=== PATIENT | female | born 1945 | race African-American/Black ===

== ENCOUNTER → 2018-10-29 | Outpatient (CLI) | payer MEDICARE, BC ==
[~2018-10-29] MED LIST: BARIUM SULFATE 450ML ORAL SUSP ONE; DIATR MEGLU/DIATRIZOATE SOLN 120ML ONE; IOHEXOL-300 100 ML BOTTLE ONE
== END | disposition home or self-care (01) ==
LOC: CT 08:09
PROVIDERS: ATTEND Surgery
DX: K57.30 Diverticulosis of large intestine without perforation or abscess without bleeding (principal); K42.9 Umbilical hernia without obstruction or gangrene; D71 Functional disorders of polymorphonuclear neutrophils; K76.89 Other specified diseases of liver; Z90.710 Acquired absence of both cervix and uterus
CPT/HCPCS: 74177; Q9967; Q9963

== ENCOUNTER 2019-02-25 13:04 | Emergency (ER) | payer MEDICARE, BC ==
[~2019-02-25] VITALS: Ht 165.1 cm; Wt 64.0 kg
[2019-02-25] MEDS ORDERED: FURO40TA5 PO (13:30)
[2019-02-25] MEDS ORDERED: FELO10TA PO (13:30)
[2019-02-25] MEDS ORDERED: ALBUL GT (13:30)
[2019-02-25] MEDS ORDERED: ASPI-1159 PO (13:30)
[2019-02-25] MEDS ORDERED: KLOR CON (13:30)
[2019-02-25] MEDS ORDERED: P50 PO (13:30)
[2019-02-25] MEDS ORDERED: FLOV44 INH (13:30)
[2019-02-25] MEDS ORDERED: B50 GT (13:30)
[2019-02-25] MEDS ORDERED: AZIT500T3 PO (13:30)
[2019-02-25] MEDS ORDERED: IPRATROPIUM BROMIDE (0.02%) 0.5MG/2.5ML NEB HHN STA (13:53)
[2019-02-25] MEDS ORDERED: ALBUTEROL (0.083%) 2.5MG/3ML NEB HHN STA (13:53)
[2019-02-25] MEDS ORDERED: PREDNISONE 20MG TABLET PO STA (13:53)
[2019-02-25] MEDS ORDERED: METHYLPREDNISOLONE SOD SUCC 40 MG/ML VIAL IM ONE (16:15)
[2019-02-25 16:23] VITALS: BP 148/75
[2019-02-25] MEDS ORDERED: METHYLPREDNISOLONE SOD SUCC 125 MG/2 ML VIAL ONE (16:25)
== END 2019-02-25 16:39 | disposition left against medical advice (07) ==
LOC: ER 13:04
DX: J45.901 Unspecified asthma with (acute) exacerbation (principal); R09.02 Hypoxemia; I10 Essential (primary) hypertension; Z90.49 Acquired absence of other specified parts of digestive tract; Z90.710 Acquired absence of both cervix and uterus; Z98.890 Other specified postprocedural states; Z88.5 Allergy status to narcotic agent
CPT/HCPCS: 94640; 96372; 99283; J2930; J7512; J7611

== ENCOUNTER 2019-03-09 16:33 | Inpatient (IN) | payer MEDICARE, BC ==
[~2019-03-09] VITALS: Ht 165.1 cm; Wt 111.6 kg
[~2019-03-09 16:33] MED LIST changes: +ALBUL GT; +ASPI-1159 PO; +AZIT500T3 PO; +B50 GT; -BARIUM SULFATE 450ML ORAL SUSP ONE; -DIATR MEGLU/DIATRIZOATE SOLN 120ML ONE; +FELO10TA PO; +FLOV44 INH; +FURO40TA5 PO; -IOHEXOL-300 100 ML BOTTLE ONE; +KLOR CON; +P50 PO
[2019-03-09] MEDS ORDERED: IPRATROPIUM BROMIDE (0.02%) 0.5MG/2.5ML NEB HHN STA (17:26)
[2019-03-09] MEDS ORDERED: ALBUTEROL (0.083%) 2.5MG/3ML NEB HHN STA (17:26)
[2019-03-09] MEDS ORDERED: METHYLPREDNISOLONE SOD SUCC 125 MG/2 ML VIAL IV STA (17:26)
[2019-03-09] MEDS ORDERED: MAGNESIUM 2 G PREMIX 50 ML IV ONE (17:30)
[2019-03-09 18:01] LABS: CHLORIDE 95 mEq/L (98-107)
[2019-03-09] MEDS ORDERED: FUROSEMIDE 40MG/4ML VIAL IVP ONE (18:30)
[2019-03-09] MEDS ORDERED: ASPIRIN 81MG TABLET PO ONE (18:30)
[2019-03-09 19:33] LABS: BASOPHILS % 1.1 % (0.0-2.0); EOSINOPHILS % 1.4 % (0.0-5.0); HEMATOCRIT. 46.2 % (36.0-48.0); HEMOGLOBIN. 14.7 g/dL (12.0-16.0); LYMPHOCYTES % 23.9 % (20.0-50.0); MEAN CORPUSCULAR HEMOGLOBIN 25.8 pg (28.0-32.0); MEAN CORPUSCULAR VOLUME 80.8 fL (81.0-99.0); MEAN PLATELET VOLUME 8.3 fl (7.4-10.4); MONOCYTES % 8.2 % (2.0-8.0); NEUTROPHILS % 65.4 % (40.0-76.0); PLATELET 179 x1000/uL (130-400); RED BLOOD CELL COUNT 5.71 mill/uL (4.2-5.4); RED CELL DISTRIBUTION WIDTH 18.6 % (11.6-14.6)
[2019-03-09] MEDS ORDERED: ACETAMINOPHEN 650MG/20.3ML UDC GT PRN (20:00)
[2019-03-09] MEDS ORDERED: ONDANSETRON HCL 4MG/2ML INJ IV PRN (20:00)
[2019-03-09] MEDS ORDERED: GUAIFENESIN 200MG/10ML SUGAR FREE UDC PO PRN (20:00)
[2019-03-09] MEDS ORDERED: DOCUSATE SODIUM 100MG CAPSULE PO PRN (20:00)
[2019-03-09] MEDS ORDERED: MAGNESIUM/ALUMINUM HYDROXIDE/SIMETHICONE 30ML UDC PO PRN (20:00)
[2019-03-09] MEDS ORDERED: NA PHOS,M-B/NA PHOS,DI-BA ENEMA 118ML PR PRN (20:00)
[2019-03-09] MEDS ORDERED: DIPHENHYDRAMINE 50MG/ML VIAL IV PRN (20:00)
[2019-03-09] MEDS ORDERED: CLONIDINE 0.1MG TABLET PO PRN (20:00)
[2019-03-09] MEDS ORDERED: ACETAMINOPHEN 650MG SUPP PR PRN (20:00)
[2019-03-09] MEDS: IPRATROPIUM/ALBUTEROL 0.5-3(2.5)MG/3ML NEB INH PRN (21:15)
[2019-03-09 21:23] LABS: BG BASE EXCESS 7.3 mmol/L (-2.0-2.0); BG CARBOXYHEMOGLOBIN 1.2 % (0.5-1.5); BG FRACTION INSPIRED OXYGEN 32; BG HCO3 ACT 34.8 mmol/L (22.0-26.0); BG METHEMOGLOBIN 0.4 % (0.0-1.5); BG OXYGEN SATURATION 87.8 % (92.0-98.5); BG OXYHEMOGLOBIN 86.4 % (94.0-97.0); BG PCO2 59.7 mmHg (35.0-45.0); BG PH 7.383 (7.350-7.450); BG PO2 57.3 mmHg (75.0-100.0); BG SAMPLE SITE RIGHT RADIAL; BG TOTAL HEMOGLOBIN 15.9 g/dL (12.0-18.0); BG VENT MODE NASAL CANNULA
[2019-03-09 22:20] VITALS: BP 127/72
[2019-03-09] MEDS: ENOXAPARIN 120MG/0.8ML SYR SUBCUT SCH (23:00)
[2019-03-09] MEDS ORDERED: FUROSEMIDE 40MG/4ML VIAL IVP SCH (23:00)
[2019-03-09 23:33] LABS: CREATINE KINASE MB FRACTION 2.9 ng/mL (0.5-3.6)
[2019-03-10] VITALS (7 sets, daily range): BP systolic 124–144; BP diastolic 64–86
[2019-03-10] MEDS: METHYLPREDNISOLONE SOD SUCC 40 MG/ML VIAL IV SCH ×4 (00:02→22:09)
[2019-03-10] MEDS: ENOXAPARIN 120MG/0.8ML SYR SUBCUT SCH ×3 (00:04→22:11)
[2019-03-10] MEDS: ALBUTEROL (0.083%) 2.5MG/3ML NEB HHN SCH ×4 (00:26→15:28)
[2019-03-10] MEDS ORDERED: MULT-1195 PO (01:17)
[2019-03-10 06:14] LABS: HEMATOCRIT. 48.6 % (36.0-48.0); HEMOGLOBIN. 15.6 g/dL (12.0-16.0); MEAN PLATELET VOLUME 8.5 fl (7.4-10.4); PLATELET 210 x1000/uL (130-400); RED BLOOD CELL COUNT 5.99 mill/uL (4.2-5.4); RED CELL DISTRIBUTION WIDTH 18.9 % (11.6-14.6)
[2019-03-10 06:33] LABS: CHLORIDE 94 mEq/L (98-107)
[2019-03-10 06:51] LABS: LDL CHOLESTEROL 110 mg/dL (5-100)
[2019-03-10 06:52] LABS: CREATINE KINASE 88 IU/L (26-192)
[2019-03-10 06:53] LABS: HDL CHOLESTEROL 68 mg/dL (40-59)
[2019-03-10] MEDS: PANTOPRAZOLE 40MG DR TABLET PO SCH (06:54)
[2019-03-10] MEDS: SODIUM CHLORIDE 0.9% INJ 3ML FLUSH IVF SCH ×3 (06:54→22:10)
[2019-03-10 06:56] LABS: CREATINE KINASE MB FRACTION 2.7 ng/mL (0.5-3.6)
[2019-03-10] MEDS: FUROSEMIDE 40MG TABLET PO SCH ×2 (09:00→22:10)
[2019-03-10] MEDS: ASPIRIN 81MG EC TABLET PO SCH ×2 (09:00→22:10)
[2019-03-10 16:02] LABS: CLARITY URINE CLEAR (CLEAR); COLOR URINE YELLOW (YELLOW); KETONES URINE NEGATIVE (NEGATIVE); LEUKOCYTE ESTERASE URINE NEGATIVE (NEGATIVE); NITRITE URINE NEGATIVE (NEGATIVE); OCCULT BLOOD URINE NEGATIVE (NEGATIVE); PH URINE 5.5 (4.5-8.0); PROTEIN URINE TRACE (NEGATIVE); SPECIFIC GRAVITY URINE 1.015 (1.005-1.030); UROBILINOGEN URINE 0.2 E.U./dL (0.2-1.0)
[2019-03-10] MEDS: AZITHROMYCIN 500 MG in DEXT 5% WATER 250 ML IV SCH (18:00)
[2019-03-10 20:26] LABS: PLATELET ESTIMATE NORMAL
[2019-03-10] MEDS: IPRATROPIUM/ALBUTEROL 0.5-3(2.5)MG/3ML NEB HHN SCH (20:46)
[2019-03-10] MEDS: HYDROCODONE/ACETAMINOPHEN 5/325MG TABLET PO PRN (22:18)
[2019-03-11] MEDS: IPRATROPIUM/ALBUTEROL 0.5-3(2.5)MG/3ML NEB HHN SCH ×5 (01:11→20:25)
[2019-03-11] MEDS: ACETYLCYSTEINE 200MG/ML 20% VIAL 4ML INH SCH ×2 (01:12→09:13)
[2019-03-11 03:55] VITALS: BP 147/90
[2019-03-11] MEDS: PANTOPRAZOLE 40MG DR TABLET PO SCH (06:09)
[2019-03-11] MEDS: SODIUM CHLORIDE 0.9% INJ 3ML FLUSH IVF SCH ×3 (06:10→22:38)
[2019-03-11] MEDS: METHYLPREDNISOLONE SOD SUCC 40 MG/ML VIAL IV SCH ×2 (06:30→15:01)
[2019-03-11 07:15] LABS: PROTHROMBIN TIME 10.7 sec (9.6-11.0)
[2019-03-11 08:06] VITALS: BP 127/78
[2019-03-11 08:26] LABS: HEMATOCRIT. 46.7 % (36.0-48.0); HEMOGLOBIN. 14.6 g/dL (12.0-16.0); MEAN CORPUSCULAR HEMOGLOBIN 25.5 pg (28.0-32.0); MEAN CORPUSCULAR VOLUME 81.7 fL (81.0-99.0); MEAN PLATELET VOLUME 9.1 fl (7.4-10.4); PLATELET 195 x1000/uL (130-400); RED BLOOD CELL COUNT 5.72 mill/uL (4.2-5.4); RED CELL DISTRIBUTION WIDTH 18.4 % (11.6-14.6)
[2019-03-11 08:34] LABS: CHLORIDE 99 mEq/L (98-107)
[2019-03-11] MEDS: ENOXAPARIN 120MG/0.8ML SYR SUBCUT SCH ×2 (11:00→21:20)
[2019-03-11] MEDS: IPRATROPIUM/ALBUTEROL 0.5-3(2.5)MG/3ML NEB INH PRN (11:52)
[2019-03-11 12:05] VITALS: BP 151/70
[2019-03-11 14:08] LABS: NUCLEATED RED BLOOD CELLS 1 /100 WBC
[2019-03-11 14:09] LABS: PLATELET ESTIMATE NORMAL
[2019-03-11 16:09] VITALS: BP 138/85
[2019-03-11] MEDS: ACETAMINOPHEN 325MG TABLET PO PRN (17:28)
[2019-03-11] MEDS: AZITHROMYCIN 500 MG in DEXT 5% WATER 250 ML IV SCH (18:00)
[2019-03-11 20:17] VITALS: BP 131/81
[2019-03-12] VITALS: BP 137/86
[2019-03-12] MEDS: IPRATROPIUM/ALBUTEROL 0.5-3(2.5)MG/3ML NEB HHN SCH ×6 (00:57→20:13)
[2019-03-12] MEDS: ACETYLCYSTEINE 100MG/ML 10% VIAL 4ML INH SCH ×4 (00:57→20:13)
[2019-03-12] MEDS: HYDROCODONE/ACETAMINOPHEN 5/325MG TABLET PO PRN (02:53)
[2019-03-12 04:00] VITALS: BP 156/82
[2019-03-12] MEDS: SODIUM CHLORIDE 0.9% INJ 3ML FLUSH IVF SCH ×3 (05:48→21:18)
[2019-03-12] MEDS: PANTOPRAZOLE 40MG DR TABLET PO SCH (05:52)
[2019-03-12] MEDS ORDERED: FUROSEMIDE 40MG TABLET PO SCH (07:15)
[2019-03-12] MEDS: METHYLPREDNISOLONE SOD SUCC 40 MG/ML VIAL IV SCH (08:36)
[2019-03-12] MEDS: ASPIRIN 81MG EC TABLET PO SCH (08:36)
[2019-03-12] MEDS: ACETAMINOPHEN 325MG TABLET PO PRN ×2 (10:27→21:18)
[2019-03-12] MEDS: ENOXAPARIN 120MG/0.8ML SYR SUBCUT SCH ×2 (11:00→21:19)
[2019-03-12 11:37] LABS: CHLORIDE 99 mEq/L (98-107)
[2019-03-12 11:43] LABS: HEMATOCRIT. 45.6 % (36.0-48.0); HEMOGLOBIN. 14.2 g/dL (12.0-16.0); MEAN CORPUSCULAR HEMOGLOBIN 25.5 pg (28.0-32.0); MEAN PLATELET VOLUME 8.9 fl (7.4-10.4); PLATELET 175 x1000/uL (130-400); RED BLOOD CELL COUNT 5.56 mill/uL (4.2-5.4); RED CELL DISTRIBUTION WIDTH 18.8 % (11.6-14.6)
[2019-03-12 11:52] VITALS: BP 135/83
[2019-03-12 12:32] LABS: NUCLEATED RED BLOOD CELLS 2 /100 WBC; PLATELET ESTIMATE NORMAL
[2019-03-12] MEDS ORDERED: FUROSEMIDE 40MG/4ML VIAL IVP SCH ×2 (14:30→17:15)
[2019-03-12 16:45] VITALS: BP 137/77
[2019-03-12] MEDS ORDERED: DOBUTAMINE 250MG PREMIX 250 ML IV NR (17:00)
[2019-03-12 20:00] VITALS: BP 131/79
[2019-03-12] MEDS: FAMOTIDINE 20MG TABLET PO SCH ×2 (21:00→21:18)
[2019-03-12 23:56] VITALS: BP 157/91
[2019-03-13] MEDS: IPRATROPIUM/ALBUTEROL 0.5-3(2.5)MG/3ML NEB HHN SCH ×3 (00:53→19:56)
[2019-03-13 04:00] VITALS: BP 148/91
[2019-03-13] MEDS: SODIUM CHLORIDE 0.9% INJ 3ML FLUSH IVF SCH ×3 (06:30→21:25)
[2019-03-13] MEDS ORDERED: ALBUMIN HUMAN 25GM/100ML (25%) IV NR (07:00)
[2019-03-13 07:11] LABS: CHLORIDE 100 mEq/L (98-107)
[2019-03-13 08:03] VITALS: BP 158/100
[2019-03-13] MEDS: FUROSEMIDE 40MG/4ML VIAL IVP SCH ×2 (08:07→17:44)
[2019-03-13] MEDS: METHYLPREDNISOLONE SOD SUCC 40 MG/ML VIAL IV SCH (08:07)
[2019-03-13] MEDS: FAMOTIDINE 20MG TABLET PO SCH ×2 (09:00→21:00)
[2019-03-13] MEDS: ACETAMINOPHEN 325MG TABLET PO PRN ×3 (09:24→21:25)
[2019-03-13] MEDS ORDERED: DOBUTAMINE 250MG PREMIX 250 ML IV ONE (09:40)
[2019-03-13] MEDS: ENOXAPARIN 120MG/0.8ML SYR SUBCUT SCH ×2 (11:00→22:23)
[2019-03-13 11:44] VITALS: BP 143/87
[2019-03-13] MEDS: ASPIRIN 81MG EC TABLET PO SCH (12:41)
[2019-03-13 16:30] VITALS: BP 138/92
[2019-03-13 20:00] VITALS: BP 142/85
[2019-03-14] VITALS: BP_SYST 151; BP_SYST 190; BP_DIAS 113; BP_DIAS 95
[2019-03-14] MEDS: IPRATROPIUM/ALBUTEROL 0.5-3(2.5)MG/3ML NEB HHN SCH ×3 (00:14→03:26)
[2019-03-14] MEDS: ACETYLCYSTEINE 100MG/ML 10% VIAL 4ML INH SCH ×2 (00:14→14:58)
[2019-03-14 04:01] VITALS: BP 169/97
[2019-03-14] MEDS: SODIUM CHLORIDE 0.9% INJ 3ML FLUSH IVF SCH (05:28)
[2019-03-14] MEDS: FUROSEMIDE 40MG/4ML VIAL IVP SCH (06:23)
[2019-03-14 07:06] LABS: CHLORIDE 98 mEq/L (98-107)
[2019-03-14] MEDS: FAMOTIDINE 20MG TABLET PO SCH (07:49)
[2019-03-14] MEDS: ENOXAPARIN 120MG/0.8ML SYR SUBCUT SCH (07:49)
[2019-03-14] MEDS: ASPIRIN 81MG EC TABLET PO SCH (07:58)
[2019-03-14 08:00] VITALS: BP 160/104
[2019-03-14] MEDS: ACETAMINOPHEN 325MG TABLET PO PRN (08:00)
[2019-03-14] MEDS ORDERED: PREDNISONE 20MG TABLET PO SCH (09:00)
[2019-03-14] MEDS ORDERED: AMLODIPINE 10MG TABLET PO SCH ×2 (10:00→10:45)
[2019-03-14] MEDS ORDERED: AMLODIPINE 10MG TABLET PO ONE (10:15)
[2019-03-14 12:00] VITALS: BP 163/105
[2019-03-14 13:43] VITALS: BP 154/94
[2019-03-14] MEDS: ALBUTEROL (0.083%) 2.5MG/3ML NEB HHN SCH (14:58)
== END 2019-03-14 17:06 | disposition home or self-care (01) | DRG 280 ==
LOC: ER 16:33 → 6WST 18:44 → ENRESERV 21:10 → 6WST 03-12 16:37
PROVIDERS: ADMIT Family Medicine; ATTEND Family Medicine
DX: I21.4 Non-ST elevation (NSTEMI) myocardial infarction (principal); J96.22 Acute and chronic respiratory failure with hypercapnia; J96.21 Acute and chronic respiratory failure with hypoxia; I50.43 Acute on chronic combined systolic (congestive) and diastolic (congestive) heart failure; J44.1 Chronic obstructive pulmonary disease with (acute) exacerbation; E44.0 Moderate protein-calorie malnutrition; Z68.41 Body mass index [BMI] 40.0-44.9, adult; J84.9 Interstitial pulmonary disease, unspecified; I11.0 Hypertensive heart disease with heart failure; E78.5 Hyperlipidemia, unspecified; E66.9 Obesity, unspecified; I27.20 Pulmonary hypertension, unspecified; E11.21 Type 2 diabetes mellitus with diabetic nephropathy; I70.0 Atherosclerosis of aorta; I07.1 Rheumatic tricuspid insufficiency; Z79.899 Other long term (current) drug therapy; Z88.5 Allergy status to narcotic agent; Z90.710 Acquired absence of both cervix and uterus; Z98.51 Tubal ligation status; Z90.49 Acquired absence of other specified parts of digestive tract; Z99.81 Dependence on supplemental oxygen; Z79.82 Long term (current) use of aspirin
CPT/HCPCS: 36415; 36600; 71045; 78452; 78582; 80048; 80061; 82375; 82550; 82553; 82805; 83735; 83880; 84484; 93005; 93017; 93306; 93970; 94640; 94644; 99291; A9500; A9558; J0456; J1200; J1250; J1650; J1940; J2920; J2930; J3475; J7040; J7060; J7512; J7608; J7611; J7620; P9047

== ENCOUNTER 2019-06-14 19:38 | Inpatient (IN) | payer MEDICARE, BC ==
[~2019-06-14] VITALS: Ht 165.1 cm; Wt 108.9 kg
[~2019-06-14 19:38] MED LIST changes: -ASPI-1159 PO; +ASPI-1393 PO; -AZIT500T3 PO; -B50 GT; -KLOR CON; +MULT-1195 PO; -P50 PO
[2019-06-14 20:57] LABS: CHLORIDE 100 mEq/L (98-107); HEMATOCRIT. 47.6 % (36.0-48.0); HEMOGLOBIN. 14.9 g/dL (12.0-16.0); MEAN CORPUSCULAR HEMOGLOBIN 24.6 pg (28.0-32.0); MEAN CORPUSCULAR VOLUME 78.7 fL (81.0-99.0); MEAN PLATELET VOLUME 9.1 fl (7.4-10.4); PLATELET 156 x1000/uL (130-400); RED BLOOD CELL COUNT 6.04 mill/uL (4.2-5.4); RED CELL DISTRIBUTION WIDTH 19.5 % (11.6-14.6)
[2019-06-14] MEDS ORDERED: FUROSEMIDE 40MG/4ML VIAL IVP ONE (21:00)
[2019-06-14 21:25] LABS: BG BASE EXCESS 8.7 mmol/L (-2.0-2.0); BG CARBOXYHEMOGLOBIN 1.8 % (0.5-1.5); BG DEOXYHEMOGLOBIN 10.5 % (0.0-5.0); BG FRACTION INSPIRED OXYGEN 28; BG HCO3 ACT 34.7 mmol/L (22.0-26.0); BG METHEMOGLOBIN 0.5 % (0.0-1.5); BG OXYGEN SATURATION 89.3 % (92.0-98.5); BG OXYHEMOGLOBIN 87.2 % (94.0-97.0); BG PCO2 52.1 mmHg (35.0-45.0); BG PH 7.441 (7.350-7.450); BG PO2 59.1 mmHg (75.0-100.0); BG SAMPLE SITE RIGHT RADIAL; BG TOTAL HEMOGLOBIN 15.3 g/dL (12.0-18.0); BG VENT MODE NASAL CANNULA
[2019-06-14] MEDS ORDERED: IPRATROPIUM BROMIDE (0.02%) 0.5MG/2.5ML NEB HHN STA (21:30)
[2019-06-14] MEDS ORDERED: ALBUTEROL (0.083%) 2.5MG/3ML NEB HHN STA (21:30)
[2019-06-14 21:50] LABS: ATYPICAL LYMPHOCYTES 2; PLATELET ESTIMATE NORMAL
[2019-06-14] MEDS ORDERED: HYDROCODONE/ACETAMINOPHEN 5/325MG TABLET PO STA (22:40)
[2019-06-14] MEDS ORDERED: ENOXAPARIN 40MG/0.4ML SYR SUBCUT SCH (22:45)
[2019-06-14] MEDS ORDERED: MAGNESIUM/ALUMINUM HYDROXIDE/SIMETHICONE 30ML UDC PO PRN (22:45)
[2019-06-14] MEDS ORDERED: DOCUSATE SODIUM 100MG CAPSULE PO PRN (22:45)
[2019-06-14] MEDS ORDERED: IPRATROPIUM/ALBUTEROL 0.5-3(2.5)MG/3ML NEB INH PRN (22:45)
[2019-06-14] MEDS ORDERED: ONDANSETRON HCL 4MG/2ML INJ IV PRN (22:45)
[2019-06-14] MEDS ORDERED: ACETAMINOPHEN 325MG TABLET PO PRN (22:45)
[2019-06-14] MEDS ORDERED: LORAZEPAM 0.5MG TABLET PO PRN (22:45)
[2019-06-14] MEDS ORDERED: NITROGLYCERIN 0.4MG TABLET SL SL PRN (22:45)
[2019-06-14] MEDS ORDERED: GUAIFENESIN 200MG/10ML SUGAR FREE UDC PO PRN (22:45)
[2019-06-14] MEDS ORDERED: CLONIDINE 0.1MG TABLET PO PRN (22:45)
[2019-06-15] VITALS (8 sets, daily range): BP systolic 123–164; BP diastolic 74–99
[2019-06-15] MEDS ORDERED: POTA20TA82 PO (01:33)
[2019-06-15] MEDS: KETOROLAC 15MG/ML VIAL IV PRN ×2 (02:00→22:08)
[2019-06-15] MEDS: SILDENAFIL CITRATE 20MG TABLET PO SCH ×3 (05:41→22:02)
[2019-06-15] MEDS: ENOXAPARIN 30MG/0.3ML SYR SUBCUT SCH ×3 (09:00→20:41)
[2019-06-15] MEDS: FUROSEMIDE 40MG/4ML VIAL IVP SCH ×2 (09:17→20:40)
[2019-06-15] MEDS: GUAIFENESIN/DM 600MG/30MG ER TAB 12HR PO SCH ×2 (09:18→20:40)
[2019-06-15] MEDS: FAMOTIDINE 20MG TABLET PO SCH ×2 (09:19→20:41)
[2019-06-15] MEDS: LISINOPRIL 5MG TABLET PO SCH ×2 (09:19→20:41)
[2019-06-15] MEDS: ASPIRIN 325MG EC TABLET PO SCH (09:19)
[2019-06-15] MEDS: SPIRONOLACTONE 25MG TABLET PO SCH ×2 (09:19→20:40)
[2019-06-15] MEDS: HYDROCODONE/ACETAMINOPHEN 5/325MG TABLET PO PRN (09:24)
[2019-06-15 09:51] LABS: CREATINE KINASE 103 IU/L (26-192)
[2019-06-15 09:52] LABS: CREATINE KINASE MB FRACTION 1.8 ng/mL (0.5-3.6)
[2019-06-15 11:29] LABS: *AMPHETAMINES SCREEN URINE NEGATIVE (NEGATIVE); *BARBITURATES SCREEN URINE NEGATIVE (NEGATIVE); CANNABINOID URINE SCREEN NEGATIVE (NEGATIVE); PHENCYCLIDINE URINE SCREEN NEGATIVE (NEGATIVE)
[2019-06-15 11:30] LABS: *BENZODIAZEPINES SCREEN URINE NEGATIVE (NEGATIVE); *COCAINE SCREEN URINE NEGATIVE (NEGATIVE); METHADONE URINE SCREEN NEGATIVE (NEGATIVE); OPIATES URINE SCREEN NEGATIVE (NEGATIVE)
[2019-06-15 12:58] LABS: BG BASE EXCESS 8.2 mmol/L (-2.0-2.0); BG CARBOXYHEMOGLOBIN 1.5 % (0.5-1.5); BG DEOXYHEMOGLOBIN 27.2 % (0.0-5.0); BG FRACTION INSPIRED OXYGEN 21; BG HCO3 ACT 37.2 mmol/L (22.0-26.0); BG METHEMOGLOBIN 0.4 % (0.0-1.5); BG OXYGEN SATURATION 72.3 % (92.0-98.5); BG OXYHEMOGLOBIN 70.9 % (94.0-97.0); BG PCO2 71.3 mmHg (35.0-45.0); BG PH 7.335 (7.350-7.450); BG PO2 43.1 mmHg (75.0-100.0); BG SAMPLE SITE RIGHT RADIAL; BG TOTAL HEMOGLOBIN 15.5 g/dL (12.0-18.0); BG VENT MODE ROOM AIR
[2019-06-15] MEDS: METHYLPREDNISOLONE SOD SUCC 125 MG/2 ML VIAL IV SCH ×2 (14:18→22:02)
[2019-06-15] MEDS: IPRATROPIUM/ALBUTEROL 0.5-3(2.5)MG/3ML NEB INH SCH ×2 (16:04→21:42)
[2019-06-15 16:21] LABS: CREATINE KINASE 78 IU/L (26-192)
[2019-06-15 16:22] LABS: CREATINE KINASE MB FRACTION 1.7 ng/mL (0.5-3.6)
[2019-06-15] MEDS: LEVOFLOXACIN 750MG PREMIX 150 ML IV SCH (17:14)
[2019-06-15 17:39] LABS: BG BASE EXCESS 7.4 mmol/L (-2.0-2.0); BG CARBOXYHEMOGLOBIN 1.5 % (0.5-1.5); BG DEOXYHEMOGLOBIN 2.9 % (0.0-5.0); BG FRACTION INSPIRED OXYGEN 50; BG HCO3 ACT 38.1 mmol/L (22.0-26.0); BG METHEMOGLOBIN 0.5 % (0.0-1.5); BG OXYHEMOGLOBIN 95.1 % (94.0-97.0); BG PCO2 85.9 mmHg (35.0-45.0); BG PH 7.265 (7.350-7.450); BG PO2 107.1 mmHg (75.0-100.0); BG SAMPLE SITE RIGHT RADIAL; BG TOTAL HEMOGLOBIN 15.1 g/dL (12.0-18.0); BG VENT MODE MASK - BIPAP
[2019-06-15 20:30] LABS: BG BASE EXCESS 6.5 mmol/L (-2.0-2.0); BG BILEVEL POS AIRWAY PRESSURE 15/6; BG CARBOXYHEMOGLOBIN 1.4 % (0.5-1.5); BG DEOXYHEMOGLOBIN 0.9 % (0.0-5.0); BG FRACTION INSPIRED OXYGEN 45; BG HCO3 ACT 32.8 mmol/L (22.0-26.0); BG METHEMOGLOBIN 0.4 % (0.0-1.5); BG OXYGEN SATURATION 99.1 % (92.0-98.5); BG OXYHEMOGLOBIN 97.3 % (94.0-97.0); BG PCO2 53.1 mmHg (35.0-45.0); BG PH 7.408 (7.350-7.450); BG PO2 158.9 mmHg (75.0-100.0); BG SAMPLE SITE RIGHT RADIAL; BG TOTAL HEMOGLOBIN 14.6 g/dL (12.0-18.0); BG VENT MODE MASK - BIPAP
[2019-06-16] VITALS (11 sets, daily range): BP systolic 110–151; BP diastolic 62–94
[2019-06-16] MEDS: IPRATROPIUM/ALBUTEROL 0.5-3(2.5)MG/3ML NEB INH SCH ×6 (00:20→21:02)
[2019-06-16] MEDS: HYDROCODONE/ACETAMINOPHEN 5/325MG TABLET PO PRN ×2 (02:21→22:17)
[2019-06-16] MEDS: ZOLPIDEM TARTRATE 5MG TABLET PO PRN ×2 (02:29→22:17)
[2019-06-16] MEDS: METHYLPREDNISOLONE SOD SUCC 125 MG/2 ML VIAL IV SCH ×3 (06:15→21:58)
[2019-06-16] MEDS: SILDENAFIL CITRATE 20MG TABLET PO SCH ×3 (06:15→21:58)
[2019-06-16 08:04] LABS: BASOPHILS % 0.3 % (0.0-2.0); HEMOGLOBIN. 14.5 g/dL (12.0-16.0); LYMPHOCYTES % 10.3 % (20.0-50.0); MEAN CORPUSCULAR VOLUME 79.6 fL (81.0-99.0); MEAN PLATELET VOLUME 9.2 fl (7.4-10.4); MONOCYTES % 1.6 % (2.0-8.0); NEUTROPHILS % 87.8 % (40.0-76.0); PLATELET 150 x1000/uL (130-400); RED BLOOD CELL COUNT 6.03 mill/uL (4.2-5.4); RED CELL DISTRIBUTION WIDTH 19.5 % (11.6-14.6)
[2019-06-16 08:09] LABS: CHLORIDE 97 mEq/L (98-107)
[2019-06-16 08:44] LABS: BG BASE EXCESS 4.6 mmol/L (-2.0-2.0); BG CARBOXYHEMOGLOBIN 1.4 % (0.5-1.5); BG DEOXYHEMOGLOBIN 3.2 % (0.0-5.0); BG FRACTION INSPIRED OXYGEN 40; BG HCO3 ACT 34.7 mmol/L (22.0-26.0); BG METHEMOGLOBIN 0.2 % (0.0-1.5); BG OXYGEN SATURATION 96.7 % (92.0-98.5); BG OXYHEMOGLOBIN 95.2 % (94.0-97.0); BG PCO2 78.4 mmHg (35.0-45.0); BG PH 7.264 (7.350-7.450); BG PO2 98.6 mmHg (75.0-100.0); BG SAMPLE SITE RIGHT RADIAL; BG TOTAL HEMOGLOBIN 15.2 g/dL (12.0-18.0); BG VENT MODE NASAL CANNULA
[2019-06-16] MEDS: FUROSEMIDE 40MG/4ML VIAL IVP SCH ×2 (08:45→21:58)
[2019-06-16] MEDS: LISINOPRIL 5MG TABLET PO SCH ×2 (08:45→21:59)
[2019-06-16] MEDS: ASPIRIN 325MG EC TABLET PO SCH (08:46)
[2019-06-16] MEDS: FAMOTIDINE 20MG TABLET PO SCH ×2 (08:46→22:00)
[2019-06-16] MEDS: GUAIFENESIN/DM 600MG/30MG ER TAB 12HR PO SCH ×2 (08:46→22:00)
[2019-06-16] MEDS: SPIRONOLACTONE 25MG TABLET PO SCH ×2 (08:46→22:00)
[2019-06-16] MEDS: ENOXAPARIN 30MG/0.3ML SYR SUBCUT SCH ×2 (09:00→21:00)
[2019-06-16 15:04] LABS: BG CARBOXYHEMOGLOBIN 1.8 % (0.5-1.5); BG DEOXYHEMOGLOBIN 6.8 % (0.0-5.0); BG FRACTION INSPIRED OXYGEN 32; BG HCO3 ACT 33.7 mmol/L (22.0-26.0); BG METHEMOGLOBIN 0.6 % (0.0-1.5); BG OXYHEMOGLOBIN 90.8 % (94.0-97.0); BG PH 7.353 (7.350-7.450); BG PO2 70.6 mmHg (75.0-100.0); BG SAMPLE SITE RIGHT RADIAL; BG TOTAL HEMOGLOBIN 14.5 g/dL (12.0-18.0); BG VENT MODE NASAL CANNULA
[2019-06-16] MEDS: LEVOFLOXACIN 750MG PREMIX 150 ML IV SCH (15:31)
[2019-06-16] MEDS ORDERED: MAGNESIUM 1 G PREMIX 100 ML IV SCH (16:00)
[2019-06-17] VITALS (12 sets, daily range): BP systolic 125–140; BP diastolic 73–101
[2019-06-17] MEDS: IPRATROPIUM/ALBUTEROL 0.5-3(2.5)MG/3ML NEB INH SCH ×6 (00:11→21:34)
[2019-06-17] MEDS: METHYLPREDNISOLONE SOD SUCC 125 MG/2 ML VIAL IV SCH ×2 (06:36→14:13)
[2019-06-17] MEDS: SILDENAFIL CITRATE 20MG TABLET PO SCH ×2 (06:44→14:13)
[2019-06-17] MEDS: ENOXAPARIN 30MG/0.3ML SYR SUBCUT SCH ×2 (08:35→21:00)
[2019-06-17] MEDS: FAMOTIDINE 20MG TABLET PO SCH ×2 (09:00→21:00)
[2019-06-17] MEDS: ASPIRIN 325MG EC TABLET PO SCH (09:08)
[2019-06-17] MEDS: GUAIFENESIN/DM 600MG/30MG ER TAB 12HR PO SCH ×2 (09:08→21:00)
[2019-06-17] MEDS: FUROSEMIDE 40MG/4ML VIAL IVP SCH ×2 (09:08→21:00)
[2019-06-17] MEDS: SPIRONOLACTONE 25MG TABLET PO SCH (09:11)
[2019-06-17] MEDS: LISINOPRIL 5MG TABLET PO SCH ×2 (09:11→21:00)
[2019-06-17] MEDS: LEVOFLOXACIN 250MG TABLET PO SCH (11:00)
[2019-06-17] MEDS ORDERED: METOLAZONE 10MG TABLET PO SCH (11:00)
[2019-06-17] MEDS: HYDROCODONE/ACETAMINOPHEN 5/325MG TABLET PO PRN ×2 (11:41→16:10)
[2019-06-17] MEDS ORDERED: FUROSEMIDE 40MG/4ML VIAL IVP SCH (13:45)
[2019-06-17] MEDS ORDERED: METOLAZONE 2.5MG TABLET PO SCH (14:00)
[2019-06-17] MEDS ORDERED: MAGNESIUM 1 G PREMIX 100 ML IV SCH (15:00)
[2019-06-17] MEDS ORDERED: POTASSIUM CHLORIDE 20MEQ TABLET SR PO NR (17:15)
[2019-06-17] MEDS: METHYLPREDNISOLONE SOD SUCC 40 MG/ML VIAL IV SCH (17:53)
[2019-06-18] VITALS (11 sets, daily range): BP systolic 102–145; BP diastolic 29–101
[2019-06-18] MEDS: IPRATROPIUM/ALBUTEROL 0.5-3(2.5)MG/3ML NEB INH SCH ×6 (01:00→19:57)
[2019-06-18] MEDS: SPIRONOLACTONE 25MG TABLET PO SCH ×3 (05:58→21:32)
[2019-06-18] MEDS: SILDENAFIL CITRATE 20MG TABLET PO SCH ×4 (06:01→21:31)
[2019-06-18 07:20] LABS: CHLORIDE 89 mEq/L (98-107)
[2019-06-18 08:27] LABS: BG BASE EXCESS 15.5 mmol/L (-2.0-2.0); BG CARBOXYHEMOGLOBIN 1.6 % (0.5-1.5); BG DEOXYHEMOGLOBIN 19.8 % (0.0-5.0); BG FRACTION INSPIRED OXYGEN 21; BG HCO3 ACT 42.5 mmol/L (22.0-26.0); BG METHEMOGLOBIN 0.1 % (0.0-1.5); BG OXYGEN SATURATION 79.9 % (92.0-98.5); BG OXYHEMOGLOBIN 78.5 % (94.0-97.0); BG PH 7.475 (7.350-7.450); BG PO2 43.8 mmHg (75.0-100.0); BG SAMPLE SITE RIGHT RADIAL; BG TOTAL HEMOGLOBIN 15.8 g/dL (12.0-18.0); BG VENT MODE ROOM AIR
[2019-06-18] MEDS: GUAIFENESIN/DM 600MG/30MG ER TAB 12HR PO SCH ×2 (09:00→21:32)
[2019-06-18] MEDS: FAMOTIDINE 20MG TABLET PO SCH ×2 (09:00→21:00)
[2019-06-18] MEDS: ENOXAPARIN 30MG/0.3ML SYR SUBCUT SCH ×2 (09:00→21:00)
[2019-06-18] MEDS ORDERED: POTASSIUM CHLORIDE 20MEQ TABLET SR PO SCH ×2 (09:00→17:00)
[2019-06-18] MEDS ORDERED: POTASSIUM CHLORIDE 20MEQ TABLET SR PO NR ×2 (09:00→17:00)
[2019-06-18] MEDS: METHYLPREDNISOLONE SOD SUCC 40 MG/ML VIAL IV SCH ×2 (09:06→17:35)
[2019-06-18] MEDS: LISINOPRIL 5MG TABLET PO SCH ×2 (09:08→21:39)
[2019-06-18] MEDS: ASPIRIN 81MG EC TABLET PO SCH (09:08)
[2019-06-18] MEDS: KETOROLAC 15MG/ML VIAL IV PRN ×2 (09:14→21:37)
[2019-06-18] MEDS: FUROSEMIDE 40MG/4ML VIAL IVP SCH ×2 (09:45→21:31)
[2019-06-18] MEDS ORDERED: POTASSIUM CHLORIDE INJ 40 MEQ in DEXT 5% WATER 250 ML IV NR (10:30)
[2019-06-18] MEDS: METOLAZONE 2.5MG TABLET PO SCH (10:56)
[2019-06-18] MEDS: LEVOFLOXACIN 250MG TABLET PO SCH (11:15)
[2019-06-18] MEDS ORDERED: FLUT250D INH (14:36)
[2019-06-18] MEDS ORDERED: ALBU18HF2 IH (14:36)
[2019-06-18] MEDS: ZOLPIDEM TARTRATE 5MG TABLET PO PRN (21:32)
[2019-06-19] VITALS (11 sets, daily range): BP systolic 125–161; BP diastolic 23–102
[2019-06-19] MEDS: IPRATROPIUM/ALBUTEROL 0.5-3(2.5)MG/3ML NEB INH SCH ×4 (04:30→16:00)
[2019-06-19] MEDS: SILDENAFIL CITRATE 20MG TABLET PO SCH ×2 (05:51→14:02)
[2019-06-19] MEDS: KETOROLAC 15MG/ML VIAL IV PRN ×2 (06:17→14:03)
[2019-06-19 06:37] LABS: BASOPHILS % 0.1 % (0.0-2.0); HEMATOCRIT. 49.4 % (36.0-48.0); HEMOGLOBIN. 15.3 g/dL (12.0-16.0); LYMPHOCYTES % 10.7 % (20.0-50.0); MEAN CORPUSCULAR HEMOGLOBIN 24.1 pg (28.0-32.0); MEAN PLATELET VOLUME 8.8 fl (7.4-10.4); MONOCYTES % 8.5 % (2.0-8.0); NEUTROPHILS % 80.7 % (40.0-76.0); PLATELET 153 x1000/uL (130-400); RED BLOOD CELL COUNT 6.34 mill/uL (4.2-5.4); RED CELL DISTRIBUTION WIDTH 19.3 % (11.6-14.6)
[2019-06-19 07:19] LABS: CHLORIDE 89 mEq/L (98-107)
[2019-06-19] MEDS: METHYLPREDNISOLONE SOD SUCC 40 MG/ML VIAL IV SCH ×2 (08:44→17:00)
[2019-06-19] MEDS: POTASSIUM CHLORIDE 20MEQ TABLET SR PO SCH ×2 (08:44→17:22)
[2019-06-19] MEDS: LISINOPRIL 5MG TABLET PO SCH (08:45)
[2019-06-19] MEDS: SPIRONOLACTONE 25MG TABLET PO SCH (08:45)
[2019-06-19] MEDS: METOLAZONE 2.5MG TABLET PO SCH (08:45)
[2019-06-19] MEDS: ASPIRIN 81MG EC TABLET PO SCH (08:45)
[2019-06-19] MEDS: GUAIFENESIN/DM 600MG/30MG ER TAB 12HR PO SCH (08:50)
[2019-06-19] MEDS: FAMOTIDINE 20MG TABLET PO SCH (08:51)
[2019-06-19] MEDS: ENOXAPARIN 30MG/0.3ML SYR SUBCUT SCH (08:51)
[2019-06-19] MEDS ORDERED: POTASSIUM CHLORIDE 20MEQ TABLET SR PO NR (09:15)
[2019-06-19] MEDS: FUROSEMIDE 40MG/4ML VIAL IVP SCH (10:07)
[2019-06-19] MEDS: LEVOFLOXACIN 250MG TABLET PO SCH (11:25)
== END 2019-06-19 17:25 | disposition home or self-care (01) | DRG 291 ==
LOC: ER 19:38 → 5WST 22:01 → SUPCPDRO 22:32 → ENRESERV 22:34 → 5EST 06-15 14:51
PROVIDERS: ADMIT Internal Medicine; ATTEND Internal Medicine
PROC: 5A09357 Assistance with Respiratory Ventilation, Less than 24 Consecutive Hours, Continuous Positive Airway Pressure (ICD-10-PCS; principal; 2019-06-15)
DX: I11.0 Hypertensive heart disease with heart failure (principal); J96.21 Acute and chronic respiratory failure with hypoxia; J96.22 Acute and chronic respiratory failure with hypercapnia; R17 Unspecified jaundice; E66.2 Morbid (severe) obesity with alveolar hypoventilation; J44.1 Chronic obstructive pulmonary disease with (acute) exacerbation; I50.33 Acute on chronic diastolic (congestive) heart failure; I27.20 Pulmonary hypertension, unspecified; J44.9 Chronic obstructive pulmonary disease, unspecified; R60.0 Localized edema; E87.6 Hypokalemia; I27.29 Other secondary pulmonary hypertension; I27.81 Cor pulmonale (chronic); Z79.51 Long term (current) use of inhaled steroids; Z79.899 Other long term (current) drug therapy; Z82.49 Family history of ischemic heart disease and other diseases of the circulatory system; Z87.891 Personal history of nicotine dependence; Z90.710 Acquired absence of both cervix and uterus; Z99.81 Dependence on supplemental oxygen; Z88.5 Allergy status to narcotic agent; Z88.8 Allergy status to other drugs, medicaments and biological substances
CPT/HCPCS: 36415; 36600; 71045; 74176; 80048; 80061; 80305; 82375; 82550; 82553; 82805; 83036; 83735; 83880; 84484; 93005; 93970; 94640; 94660; 96374; 97162; 97166; 99285; C1893; J1650; J1885; J1940; J1956; J2920; J2930; J3475; J3480; J7050; J7060; J7611; J7620

== ENCOUNTER → 2020-10-01 | Outpatient (CLI) | payer MEDICARE, BC ==
[~2020-10-01] MED LIST changes: +ALBU18HF2 IH; -ALBUL GT; -ASPI-1393 PO; +ASPI-1497 PO; -FELO10TA PO; +FELO10TA45 PO; -FLOV44 INH; +FLUT250D INH; -FURO40TA5 PO
== END | disposition home or self-care (01) ==
LOC: NM 09:02
PROVIDERS: ATTEND Ophthalmology
DX: J44.9 Chronic obstructive pulmonary disease, unspecified (principal); J96.11 Chronic respiratory failure with hypoxia; I27.0 Primary pulmonary hypertension; J98.11 Atelectasis
CPT/HCPCS: 71046; 78582; A9540; A9558

== ENCOUNTER → 2021-03-25 | Day surgery (SDC) | payer MEDICARE, BC ==
[~2021-03-25] MED LIST changes: +LIDOCAINE HCL/EPINEPHRINE 1%-EPI 1:100,000 20 ML VIAL ONE; +SODIUM BICARBONATE 4% (2.4MEQ) 5ML VIAL IV ONE
== END | disposition home or self-care (01) ==
LOC: RAD 09:26
PROVIDERS: ATTEND Surgery
DX: N63.12 Unspecified lump in the right breast, upper inner quadrant (principal); R92.8 Other abnormal and inconclusive findings on diagnostic imaging of breast; C50.211 Malignant neoplasm of upper-inner quadrant of right female breast; Z87.891 Personal history of nicotine dependence; Z79.82 Long term (current) use of aspirin; Z79.899 Other long term (current) drug therapy; Z98.890 Other specified postprocedural states; Z72.89 Other problems related to lifestyle
CPT/HCPCS: 19083; 88307; A4648; J3490

== ENCOUNTER → 2021-11-05 | Outpatient (CLI) | payer MEDICARE, BC ==
[~2021-11-05] MED LIST changes: +FERROUS; +FLUT1BLS3 INH; +FURO40TA5 MT; +LETR2.5T7 PO; -LIDOCAINE HCL/EPINEPHRINE 1%-EPI 1:100,000 20 ML VIAL ONE; +POTA10TA11 MT; -SODIUM BICARBONATE 4% (2.4MEQ) 5ML VIAL IV ONE; +SPIR25TA MT
[2021-11-05 15:51] LABS: BASOPHILS % 1.6 % (0.0-2.0); EOSINOPHILS % 3.1 % (0.0-5.0); HEMATOCRIT. 26.4 % (36.0-48.0); HEMOGLOBIN. 8.3 g/dL (12.0-16.0); LYMPHOCYTES % 9.2 % (20.0-50.0); MEAN CORPUSCULAR HEMOGLOBIN 22.7 pg (28.0-32.0); MEAN CORPUSCULAR VOLUME 72.1 fL (81.0-99.0); MONOCYTES % 9.7 % (2.0-8.0); NEUTROPHILS % 76.4 % (40.0-76.0); PLATELET 250 x1000/uL (130-400); RED BLOOD CELL COUNT 3.66 mill/uL (4.2-5.4); RED CELL DISTRIBUTION WIDTH 20.4 % (11.6-14.6)
[2021-11-05 15:53] LABS: CHLORIDE 107 mEq/L (98-107)
[2021-11-05 16:00] LABS: PARTIAL THROMBOPLASTIN TIME 23.8 sec (23.4-31.0); PROTHROMBIN TIME 10.6 sec (9.6-11.0)
== END | disposition home or self-care (01) ==
LOC: RAD 14:33
DX: Z01.812 Encounter for preprocedural laboratory examination (principal); N93.9 Abnormal uterine and vaginal bleeding, unspecified
CPT/HCPCS: 36415; 80048; 85025

== ENCOUNTER 2021-11-11 05:25 | Inpatient (IN) | payer MEDICARE, BC ==
[2021-11-05 16:04] LABS: CLARITY URINE CLEAR (CLEAR); COLOR URINE YELLOW (YELLOW); KETONES URINE NEGATIVE (NEGATIVE); LEUKOCYTE ESTERASE URINE TRACE (NEGATIVE); NITRITE URINE NEGATIVE (NEGATIVE); OCCULT BLOOD URINE NEGATIVE (NEGATIVE); PROTEIN URINE NEGATIVE (NEGATIVE); SPECIFIC GRAVITY URINE 1.008 (1.005-1.030); UROBILINOGEN URINE 0.2 E.U./dL (0.2-1.0)
[~2021-11-11] VITALS: Ht 165.1 cm; Wt 100.7 kg
[~2021-11-11 05:25] MED LIST changes: -FERROUS; -LETR2.5T7 PO
[2021-11-11] MEDS ORDERED: LACTATED RINGERS 1,000 ML IV SCH (05:30)
[2021-11-11] MEDS ORDERED: BUPIVACAINE HCL 0.5% (5MG/ML) 50ML ONE (07:13)
[2021-11-11] MEDS ORDERED: SKIN ADHESIVE 0.7 GM EA TOP ONE ×2 (07:13→09:09)
[2021-11-11] MEDS ORDERED: LABETALOL 5MG/ML SYR 20 MG/4 ML SYRINGE IV PRN (08:30)
[2021-11-11] MEDS ORDERED: ONDANSETRON HCL 4MG/2ML INJ IV PRN ×2 (08:30→09:30)
[2021-11-11] MEDS ORDERED: MEPERIDINE HCL/PF 25MG/ML CPJ IV PRN (08:30)
[2021-11-11] MEDS ORDERED: HYDROMORPHONE HCL/PF 2MG/ML CPJ IV PRN (08:30)
[2021-11-11] MEDS ORDERED: BUPIVACAINE HCL 0.5% 125 ML in ON-Q PM012 DRUG DELIV DEVICE 1 EA IR SCH (08:45)
[2021-11-11] MEDS ORDERED: BUPIVACAINE HCL 0.5% 125 ML in ON-Q PUMP (PM012=P100X2) IR SCH (09:00)
[2021-11-11] MEDS ORDERED: MORPHINE SULFATE 2 MG/ML CPJ (NOT FOR IM USE) IV PRN (09:30)
[2021-11-11] MEDS ORDERED: MORPHINE SULFATE 4 MG/ML CPJ (NOT FOR IM USE) IV PRN (09:30)
[2021-11-11] MEDS: IPRATROPIUM/ALBUTEROL 0.5-3(2.5)MG/3ML NEB HHN PRN (10:32)
[2021-11-11 10:34] LABS: BG BASE EXCESS -7.4 mmol/L (-2.0-2.0); BG CARBOXYHEMOGLOBIN 0.3 % (0.5-1.5); BG DEOXYHEMOGLOBIN 3.9 % (0.0-5.0); BG FRACTION INSPIRED OXYGEN 60; BG HCO3 ACT 22.1 mmol/L (22.0-26.0); BG METHEMOGLOBIN 0.1 % (0.0-1.5); BG OXYGEN SATURATION 96.1 % (92.0-98.5); BG OXYHEMOGLOBIN 95.7 % (94.0-97.0); BG PCO2 67.9 mmHg (35.0-45.0); BG PO2 114.6 mmHg (75.0-100.0); BG SAMPLE SITE RIGHT RADIAL; BG TOTAL HEMOGLOBIN 9.6 g/dL (12.0-18.0); BG VENT MODE MASK - SIMPLE
[2021-11-11 11:55] LABS: BG BASE EXCESS -4.2 mmol/L (-2.0-2.0); BG CARBOXYHEMOGLOBIN 0.1 % (0.5-1.5); BG DEOXYHEMOGLOBIN 5.1 % (0.0-5.0); BG FRACTION INSPIRED OXYGEN 60; BG HCO3 ACT 23.4 mmol/L (22.0-26.0); BG METHEMOGLOBIN 0.4 % (0.0-1.5); BG OXYGEN SATURATION 94.9 % (92.0-98.5); BG OXYHEMOGLOBIN 94.4 % (94.0-97.0); BG PCO2 56.4 mmHg (35.0-45.0); BG PH 7.236 (7.350-7.450); BG PO2 91.1 mmHg (75.0-100.0); BG SAMPLE SITE RIGHT RADIAL; BG TOTAL HEMOGLOBIN 9.6 g/dL (12.0-18.0); BG VENT MODE MASK - SIMPLE
[2021-11-11 12:00] VITALS: BP 105/66
[2021-11-11] MEDS ORDERED: METRONIDAZOLE 500 MG PREMIX 100 ML IV SCH (12:00)
[2021-11-11 12:25] VITALS: BP 105/66
[2021-11-11] MEDS ORDERED: NALOXONE HCL 0.4MG/ML VIAL IV PRN (14:00)
[2021-11-11] MEDS: HYDROMORPHONE HCL/PF 2MG/ML CPJ IV PRN ×3 (14:05→22:31)
[2021-11-11] MEDS ORDERED: CEFAZOLIN 1000MG PREMIX 50 ML IV SCH (15:00)
[2021-11-11 16:00] VITALS: BP 124/72
[2021-11-11] MEDS ORDERED: FERROUS (16:45)
[2021-11-11] MEDS ORDERED: LETR2.5T7 PO (16:45)
[2021-11-11] MEDS: CEFAZOLIN 1000MG PREMIX 50 ML IV SCH (17:47)
[2021-11-11 19:44] LABS: HEMATOCRIT. 27.6 % (36.0-48.0); HEMOGLOBIN. 8.2 g/dL (12.0-16.0); MEAN CORPUSCULAR HEMOGLOBIN 21.7 pg (28.0-32.0); MEAN CORPUSCULAR VOLUME 72.8 fL (81.0-99.0); MEAN PLATELET VOLUME 7.4 fl (7.4-10.4); PLATELET 255 x1000/uL (130-400); RED CELL DISTRIBUTION WIDTH 20.1 % (11.6-14.6)
[2021-11-11 19:51] LABS: CHLORIDE 109 mEq/L (98-107)
[2021-11-11 20:00] VITALS: BP 133/76
[2021-11-11 20:28] LABS: PLATELET ESTIMATE NORMAL
[2021-11-11] MEDS: HEPARIN 5000 UNITS/ML VIAL SUBCUT SCH (21:00)
[2021-11-11] MEDS: DEXT 5%/0.45% NACL KCL 20MEQ/L 1,000 ML IV SCH ×2 (22:12→22:28)
[2021-11-11] MEDS: FAMOTIDINE 20MG/2ML VIAL IV SCH (22:13)
[2021-11-11] MEDS: METRONIDAZOLE 500 MG PREMIX 100 ML IV SCH (22:27)
[2021-11-12] VITALS: BP 138/82
[2021-11-12 04:00] VITALS: BP 132/81
[2021-11-12] MEDS: CEFAZOLIN 1000MG PREMIX 50 ML IV SCH ×3 (04:05→17:44)
[2021-11-12] MEDS: HYDROMORPHONE HCL/PF 2MG/ML CPJ IV PRN ×4 (05:03→21:12)
[2021-11-12] MEDS: METRONIDAZOLE 500 MG PREMIX 100 ML IV SCH (06:53)
[2021-11-12] MEDS: DEXT 5%/0.45% NACL KCL 20MEQ/L 1,000 ML IV SCH ×2 (06:54→16:28)
[2021-11-12 08:00] VITALS: BP 116/76
[2021-11-12] MEDS ORDERED: LIDOCAINE HCL 1% 20ML VIAL (Pyxis) INJ ONE (09:01)
[2021-11-12] MEDS: HEPARIN 5000 UNITS/ML VIAL SUBCUT SCH ×2 (10:14→20:26)
[2021-11-12] MEDS: FAMOTIDINE 20MG/2ML VIAL IV SCH (10:15)
[2021-11-12 12:00] VITALS: BP 121/68
[2021-11-12 16:00] VITALS: BP 115/67
[2021-11-12 20:00] VITALS: BP 158/62
[2021-11-13] VITALS: BP 129/66
[2021-11-13] MEDS: DEXT 5%/0.45% NACL KCL 20MEQ/L 1,000 ML IV SCH ×3 (01:32→21:10)
[2021-11-13] MEDS: HYDROMORPHONE HCL/PF 2MG/ML CPJ IV PRN ×5 (01:33→21:12)
[2021-11-13 04:00] VITALS: BP 154/76
[2021-11-13 08:00] VITALS: BP 130/71
[2021-11-13] MEDS: FAMOTIDINE 20MG/2ML VIAL IV SCH (08:56)
[2021-11-13] MEDS: HEPARIN 5000 UNITS/ML VIAL SUBCUT SCH ×2 (08:58→21:11)
[2021-11-13 12:00] VITALS: BP 119/60
[2021-11-13 16:00] VITALS: BP_SYST 119; BP_SYST 121; BP_DIAS 56; BP_DIAS 60
[2021-11-13 20:00] VITALS: BP 131/66
[2021-11-14] VITALS: BP 136/71
[2021-11-14] MEDS: HYDROMORPHONE HCL/PF 2MG/ML CPJ IV PRN ×4 (02:29→21:09)
[2021-11-14 04:00] VITALS: BP 128/77
[2021-11-14 08:00] VITALS: BP 136/68
[2021-11-14] MEDS: FAMOTIDINE 20MG/2ML VIAL IV SCH (09:35)
[2021-11-14] MEDS: DEXT 5%/0.45% NACL KCL 20MEQ/L 1,000 ML IV SCH ×2 (09:35→18:52)
[2021-11-14] MEDS: HEPARIN 5000 UNITS/ML VIAL SUBCUT SCH ×2 (09:36→21:08)
[2021-11-14 12:00] VITALS: BP 125/75
[2021-11-14 16:00] VITALS: BP 133/61
[2021-11-14 20:00] VITALS: BP 129/82
[2021-11-15 00:47] VITALS: BP 119/76
[2021-11-15] MEDS: HYDROMORPHONE HCL/PF 2MG/ML CPJ IV PRN ×4 (02:35→23:03)
[2021-11-15] MEDS: DEXT 5%/0.45% NACL KCL 20MEQ/L 1,000 ML IV SCH ×2 (04:34→13:58)
[2021-11-15 08:00] VITALS: BP 125/70
[2021-11-15] MEDS: FAMOTIDINE 20MG/2ML VIAL IV SCH ×2 (09:30→20:34)
[2021-11-15] MEDS: HEPARIN 5000 UNITS/ML VIAL SUBCUT SCH ×2 (09:31→20:35)
[2021-11-15 12:00] VITALS: BP 146/93
[2021-11-15] MEDS ORDERED: HYDROCODONE/ACETAMINOPHEN 5/325MG TABLET PO PRN (12:15)
[2021-11-15] MEDS ORDERED: INFLUENZA VACCINE 05/PF 0.5 ML SYRINGE IM ONE (15:15)
[2021-11-15 16:00] VITALS: BP 131/76
[2021-11-15] MEDS ORDERED: HYDROMORPHONE HCL/PF 2MG/ML CPJ IV PRN (16:00)
[2021-11-15 20:00] VITALS: BP 138/77
[2021-11-16] VITALS: BP 136/85
[2021-11-16] MEDS: HYDROMORPHONE HCL/PF 2MG/ML CPJ IV PRN ×3 (03:03→20:50)
[2021-11-16 04:00] VITALS: BP 127/72
[2021-11-16 08:00] VITALS: BP 125/62
[2021-11-16] MEDS: HEPARIN 5000 UNITS/ML VIAL SUBCUT SCH ×2 (09:24→20:51)
[2021-11-16] MEDS: FAMOTIDINE 20MG/2ML VIAL IV SCH ×2 (09:24→20:50)
[2021-11-16] MEDS: DEXT 5%/0.45% NACL KCL 20MEQ/L 1,000 ML IV SCH ×3 (10:04→20:49)
[2021-11-16 12:00] VITALS: BP 129/75
[2021-11-16 16:00] VITALS: BP 122/72
[2021-11-16 18:11] LABS: HEMATOCRIT 25.1 % (36.0-48.0); HEMOGLOBIN 7.5 g/dL (12.0-16.0); MEAN CORPUSCULAR HEMOGLOBIN 21.4 pg (28.0-32.0); MEAN CORPUSCULAR VOLUME 71.5 fL (81.0-99.0); PLATELET 216 x1000/uL (130-400); RED BLOOD CELL COUNT 3.51 mill/uL (4.2-5.4); RED CELL DISTRIBUTION WIDTH 20.2 % (11.6-14.6)
[2021-11-16 20:00] VITALS: BP 137/75
[2021-11-17] VITALS (10 sets, daily range): BP systolic 113–144; BP diastolic 55–85
[2021-11-17] MEDS: IPRATROPIUM/ALBUTEROL 0.5-3(2.5)MG/3ML NEB HHN PRN ×4 (01:18→22:00)
[2021-11-17] MEDS: HYDROMORPHONE HCL/PF 2MG/ML CPJ IV PRN ×4 (02:13→22:05)
[2021-11-17] MEDS: DEXT 5%/0.45% NACL KCL 20MEQ/L 1,000 ML IV SCH ×2 (04:58→19:00)
[2021-11-17] MEDS: FAMOTIDINE 20MG/2ML VIAL IV SCH (09:25)
[2021-11-17] MEDS: HEPARIN 5000 UNITS/ML VIAL SUBCUT SCH ×2 (09:26→20:48)
[2021-11-17] MEDS: MAGNESIUM HYDROXIDE 400MG/5ML 30ML UDC PO SCH ×2 (13:45→16:00)
[2021-11-17 17:16] LABS: BASOPHILS % 0.2 % (0.0-2.0); EOSINOPHILS % 7.2 % (0.0-5.0); HEMATOCRIT. 29.6 % (36.0-48.0); HEMOGLOBIN. 8.3 g/dL (12.0-16.0); LYMPHOCYTES % 12.5 % (20.0-50.0); MEAN CORPUSCULAR VOLUME 78.7 fL (81.0-99.0); MEAN PLATELET VOLUME 7.4 fl (7.4-10.4); MONOCYTES % 13.1 % (2.0-8.0); PLATELET 189 x1000/uL (130-400); RED BLOOD CELL COUNT 3.76 mill/uL (4.2-5.4); RED CELL DISTRIBUTION WIDTH 21.1 % (11.6-14.6)
[2021-11-17] MEDS: FAMOTIDINE 20MG TABLET PO SCH (20:47)
[2021-11-18] VITALS: BP 122/66
[2021-11-18] MEDS: DEXT 5%/0.45% NACL KCL 20MEQ/L 1,000 ML IV SCH (02:00)
[2021-11-18 04:00] VITALS: BP 145/77
[2021-11-18] MEDS: IPRATROPIUM/ALBUTEROL 0.5-3(2.5)MG/3ML NEB HHN PRN ×3 (05:16→13:16)
[2021-11-18 07:06] LABS: BASOPHILS % 1.4 % (0.0-2.0); EOSINOPHILS % 9.7 % (0.0-5.0); HEMATOCRIT. 25.3 % (36.0-48.0); LYMPHOCYTES % 11.6 % (20.0-50.0); MEAN CORPUSCULAR HEMOGLOBIN 22.6 pg (28.0-32.0); MEAN CORPUSCULAR VOLUME 70.9 fL (81.0-99.0); MEAN PLATELET VOLUME 8.6 fl (7.4-10.4); MONOCYTES % 14.8 % (2.0-8.0); NEUTROPHILS % 62.5 % (40.0-76.0); PLATELET 213 x1000/uL (130-400); RED BLOOD CELL COUNT 3.56 mill/uL (4.2-5.4); RED CELL DISTRIBUTION WIDTH 20.8 % (11.6-14.6)
[2021-11-18 07:10] LABS: CHLORIDE 107 mEq/L (98-107)
[2021-11-18 07:11] VITALS: BP 108/72
[2021-11-18 08:00] VITALS: BP 137/76
[2021-11-18] MEDS: FAMOTIDINE 20MG TABLET PO SCH (08:46)
[2021-11-18] MEDS: HEPARIN 5000 UNITS/ML VIAL SUBCUT SCH (08:47)
[2021-11-18] MEDS: HYDROMORPHONE HCL/PF 2MG/ML CPJ IV PRN (09:18)
[2021-11-18 12:00] VITALS: BP 108/72
[2021-11-18 12:30] VITALS: BP 108/72
== END 2021-11-18 15:02 | disposition home or self-care (01) | DRG 330 ==
LOC: OR 05:25 → 6EST 05:26
PROVIDERS: ADMIT Surgery; ATTEND Surgery
PROC: 0DBF4ZZ Excision of Right Large Intestine, Percutaneous Endoscopic Approach (ICD-10-PCS; principal; 2021-11-11)
PROC: 02HV33Z Insertion of Infusion Device into Superior Vena Cava, Percutaneous Approach (ICD-10-PCS; 2021-11-12)
PROC: B518ZZA Fluoroscopy of Superior Vena Cava, Guidance (ICD-10-PCS; 2021-11-12)
PROC: B548ZZA Ultrasonography of Superior Vena Cava, Guidance (ICD-10-PCS; 2021-11-12)
PROC: 30233N1 Transfusion of Nonautologous Red Blood Cells into Peripheral Vein, Percutaneous Approach (ICD-10-PCS; 2021-11-16)
DX: C18.2 Malignant neoplasm of ascending colon (principal); C18.0 Malignant neoplasm of cecum; K42.9 Umbilical hernia without obstruction or gangrene; C50.919 Malignant neoplasm of unspecified site of unspecified female breast; Z20.822 Contact with and (suspected) exposure to COVID-19; J44.9 Chronic obstructive pulmonary disease, unspecified; K59.00 Constipation, unspecified; Z92.3 Personal history of irradiation; Z99.81 Dependence on supplemental oxygen; Z90.710 Acquired absence of both cervix and uterus
CPT/HCPCS: 36415; 36573; 36600; 71045; 74176; 80048; 81003; 82375; 82805; 85025; 85027; 86850; 86900; 86920; 87426; 88307; 93005; 94640; 97161; C1725; C1893; J0690; J1100; J1170; J1644; J2250; J2405; J2704; J2710; J3010; J3490; J7030; J7040; P9016

== ENCOUNTER 2022-03-08 18:40 | Emergency (ER) | payer MEDICARE, BC ==
[~2022-03-08] VITALS: Ht 165.1 cm; Wt 93.0 kg
[~2022-03-08 18:40] MED LIST changes: +FERROUS; +LETR2.5T7 PO
[2022-03-08 19:40] LABS: BASOPHILS % 1.3 % (0.0-2.0); EOSINOPHILS % 2.5 % (0.0-5.0); HEMATOCRIT. 40.9 % (36.0-48.0); LYMPHOCYTES % 7.3 % (20.0-50.0); MEAN CORPUSCULAR HEMOGLOBIN 26.2 pg (28.0-32.0); MEAN CORPUSCULAR VOLUME 82.5 fL (81.0-99.0); MEAN PLATELET VOLUME 8.9 fl (7.4-10.4); MONOCYTES % 8.5 % (2.0-8.0); NEUTROPHILS % 80.4 % (40.0-76.0); PLATELET 198 x1000/uL (130-400); RED BLOOD CELL COUNT 4.96 mill/uL (4.2-5.4)
[2022-03-08 19:46] LABS: CHLORIDE 108 mEq/L (98-107)
[2022-03-08] MEDS ORDERED: ENOXAPARIN 100MG/ML SYR SUBCUT NR (20:00)
[2022-03-08 20:41] LABS: PLATELET ESTIMATE NORMAL
[2022-03-08 21:00] VITALS: BP 93/61
[2022-03-08 21:02] LABS: PARTIAL THROMBOPLASTIN TIME 27.6 sec (23.4-31.0); PROTHROMBIN TIME 10.8 sec (9.6-11.0)
[2022-03-08] MEDS ORDERED: APIX5TAB MT (21:26)
== END 2022-03-08 21:30 | disposition left against medical advice (07) ==
LOC: ER 19:03 → CANBEDREQ 03-09 20:39
DX: I26.99 Other pulmonary embolism without acute cor pulmonale (principal); R06.89 Other abnormalities of breathing; J44.1 Chronic obstructive pulmonary disease with (acute) exacerbation; J45.909 Unspecified asthma, uncomplicated; Z98.890 Other specified postprocedural states; Z88.6 Allergy status to analgesic agent; Z79.82 Long term (current) use of aspirin; Z79.899 Other long term (current) drug therapy; Z90.49 Acquired absence of other specified parts of digestive tract
CPT/HCPCS: 36415; 80053; 83880; 84484; 85025; 85610; 85730; 93005; 93970; 96372; 99285; J1650

== ENCOUNTER 2023-05-18 23:58 | Inpatient (IN) | payer MEDICARE, BC ==
[~2023-05-18] VITALS: Ht 165.1 cm; Wt 89.4 kg
[~2023-05-18 23:58] MED LIST changes: +APIX5TAB MT; +POTA-185 MT; -POTA10TA11 MT
[2023-05-19 00:02] VITALS: O2SAT 98
[2023-05-19] MEDS ORDERED: MORPHINE SULFATE 4 MG/ML CPJ (NOT FOR IM USE) IV ONE (01:00)
[2023-05-19] MEDS ORDERED: HYDROMORPHONE HCL/PF 2MG/ML CPJ IV NR (02:15)
[2023-05-19] MEDS ORDERED: ONDANSETRON HCL 4MG/2ML INJ IV ONE (07:00)
[2023-05-19] MEDS ORDERED: MORPHINE SULFATE 2 MG/ML CPJ (NOT FOR IM USE) IV ONE (07:00)
[2023-05-19] MEDS ORDERED: HYDROCODONE/ACETAMINOPHEN 5/325MG TABLET PO ONE (08:15)
[2023-05-19 09:35] VITALS: BP 137/76; PULSE 102; RESP 20; TEMP 97.7
[2023-05-19] MEDS ORDERED: ACETAMINOPHEN 325MG TABLET PO PRN ×2 (10:30)
[2023-05-19] MEDS ORDERED: ONDANSETRON HCL 4MG/2ML INJ IV PRN (10:30)
[2023-05-19] MEDS ORDERED: NALOXONE HCL 0.4MG/ML VIAL IV PRN (10:30)
[2023-05-19] MEDS ORDERED: DIPHENHYDRAMINE 50MG/ML VIAL IV PRN (10:30)
[2023-05-19] MEDS ORDERED: HYDROCODONE/ACETAMINOPHEN 10/325MG TABLET PO PRN (10:30)
[2023-05-19] MEDS ORDERED: IPRATROPIUM/ALBUTEROL 0.5-3(2.5)MG/3ML NEB HHN PRN (10:30)
[2023-05-19] MEDS ORDERED: GUAIFENESIN 200MG/10ML SUGAR FREE UDC PO PRN (10:30)
[2023-05-19] MEDS ORDERED: CLONIDINE 0.1MG TABLET PO PRN (10:30)
[2023-05-19] MEDS ORDERED: ZOLPIDEM TARTRATE 5MG TABLET PO PRN (10:30)
[2023-05-19] MEDS ORDERED: MAGNESIUM/ALUMINUM HYDROXIDE/SIMETHICONE 30ML UDC PO PRN (10:30)
[2023-05-19 12:00] VITALS: BP 136/93; PULSE 95; RESP 20; TEMP 98.2
[2023-05-19] MEDS ORDERED: ALBUTEROL (0.083%) 2.5MG/3ML NEB HHN SCH (12:00)
[2023-05-19] MEDS: SODIUM CHLORIDE 0.9% INJ 3ML FLUSH IVF SCH ×2 (13:56→21:05)
[2023-05-19] MEDS: HYDROMORPHONE HCL/PF 2MG/ML CPJ IV PRN (15:09)
[2023-05-19 16:00] VITALS: BP 138/88; PULSE 52; RESP 17; TEMP 95.1
[2023-05-19] MEDS ORDERED: APIXABAN 5 MG TABLET PO SCH (17:00)
[2023-05-19 17:07] LABS: HEMATOCRIT. 41.4 % (36.0-48.0); HEMOGLOBIN. 13.6 g/dL (12.0-16.0); MEAN CORPUSCULAR HEMOGLOBIN 33.2 pg (28.0-32.0); MEAN CORPUSCULAR VOLUME 100.8 fL (81.0-99.0); MEAN PLATELET VOLUME 8.6 fl (7.4-10.4); PLATELET 178 x1000/uL (130-400); RED BLOOD CELL COUNT 4.11 mill/uL (4.2-5.4); RED CELL DISTRIBUTION WIDTH 14.4 % (11.6-14.6)
[2023-05-19] MEDS: SPIRONOLACTONE 25MG TABLET PO SCH (17:17)
[2023-05-19] MEDS ORDERED: FUROSEMIDE 40MG TABLET PO NR (17:30)
[2023-05-19] MEDS ORDERED: MULTIVITAMINS,THER W-MINERALS TABLET PO NR (18:00)
[2023-05-19] MEDS ORDERED: POTASSIUM CHLORIDE 10MEQ TABLET SR PO NR (18:00)
[2023-05-19 18:30] LABS: PLATELET ESTIMATE NORMAL
[2023-05-19 20:00] VITALS: BP 120/75; PULSE 83; RESP 16; TEMP 97.9
[2023-05-20] VITALS (11 sets, daily range): BP systolic 57–143; BP diastolic 19–99; PULSE 92–113; RESP 14–119; TEMP 96–99
[2023-05-20] MEDS: HYDROMORPHONE HCL/PF 2MG/ML CPJ IV PRN ×2 (02:59→10:20)
[2023-05-20] MEDS: SODIUM CHLORIDE 0.9% INJ 3ML FLUSH IVF SCH ×2 (05:41→15:43)
[2023-05-20] MEDS: SPIRONOLACTONE 25MG TABLET PO SCH ×2 (08:49→15:43)
[2023-05-20] MEDS: FUROSEMIDE 40MG TABLET PO SCH ×2 (08:50→09:08)
[2023-05-20] MEDS ORDERED: FLUTICASONE/VILANTEROL 200-25 BLST.W.DEV ORI SCH (09:00)
[2023-05-20] MEDS ORDERED: MULTIVITAMINS,THER W-MINERALS TABLET PO SCH (09:00)
[2023-05-20] MEDS ORDERED: POTASSIUM CHLORIDE 10MEQ TABLET SR PO SCH (09:00)
[2023-05-20] MEDS ORDERED: SPIRONOLACTONE 25MG TABLET PO SCH (09:00)
[2023-05-20] MEDS: IPRATROPIUM/ALBUTEROL 0.5-3(2.5)MG/3ML NEB HHN SCH ×3 (10:25→20:42)
[2023-05-20] MEDS: BUDESONIDE 0.5MG/2ML NEB HHN SCH ×2 (10:26→20:42)
[2023-05-20] MEDS ORDERED: METHYLPREDNISOLONE SOD SUCC 125MG/2ML (ACT-O-VIAL) IV NR (10:30)
[2023-05-20] MEDS ORDERED: METOLAZONE 5MG TABLET PO NR (14:00)
[2023-05-20] MEDS: FUROSEMIDE 40MG/4ML VIAL IVP SCH ×2 (15:42→17:12)
[2023-05-20 15:46] LABS: BG BASE EXCESS -16.8 mmol/L (-2.0-2.0); BG CARBOXYHEMOGLOBIN 0.2 % (0.5-1.5); BG HCO3 ACT 10.9 mmol/L (22.0-26.0); BG METHEMOGLOBIN 0.2 % (0.0-1.5); BG OXYGEN SATURATION 76.9 % (92.0-98.5); BG OXYHEMOGLOBIN 76.6 % (94.0-97.0); BG PCO2 32.4 mmHg (35.0-45.0); BG PH 7.145 (7.350-7.450); BG PO2 55.6 mmHg (75.0-100.0); BG SAMPLE SITE RIGHT BRACHIAL; BG TOTAL HEMOGLOBIN 15.7 g/dL (12.0-18.0); BG VENT MODE NASAL CANNULA
[2023-05-20] MEDS ORDERED: SODIUM BICARBONATE 8.4% 1 MEQ/ML 50ML SYR IV NR ×3 (16:30→19:00)
[2023-05-20 18:44] LABS: BG CARBOXYHEMOGLOBIN 0.2 % (0.5-1.5); BG DEOXYHEMOGLOBIN 13.9 % (0.0-5.0); BG FRACTION INSPIRED OXYGEN 40; BG METHEMOGLOBIN 0.2 % (0.0-1.5); BG OXYHEMOGLOBIN 85.7 % (94.0-97.0); BG PCO2 38.1 mmHg (35.0-45.0); BG PH 7.152 (7.350-7.450); BG SAMPLE SITE RIGHT BRACHIAL; BG TOTAL HEMOGLOBIN 15.3 g/dL (12.0-18.0); BG VENT MODE NASAL CANNULA
== END 2023-05-21 05:47 | DRG 562 ==
LOC: ER 23:58 → 6EST 05-19 08:13 → EDBEDREQTM 05-19 08:16 → EDBEDREQ 05-19 08:16 → 7WST 05-20 11:46 → 5EST 05-20 17:45
PROVIDERS: ADMIT Internal Medicine; ATTEND Internal Medicine
PROC: 5A09357 Assistance with Respiratory Ventilation, Less than 24 Consecutive Hours, Continuous Positive Airway Pressure (ICD-10-PCS; principal; 2023-05-20)
PROC: 5A12012 Performance of Cardiac Output, Single, Manual (ICD-10-PCS; 2023-05-20)
DX: S42.202A Unspecified fracture of upper end of left humerus, initial encounter for closed fracture (principal); I50.43 Acute on chronic combined systolic (congestive) and diastolic (congestive) heart failure; J96.21 Acute and chronic respiratory failure with hypoxia; J44.1 Chronic obstructive pulmonary disease with (acute) exacerbation; J44.9 Chronic obstructive pulmonary disease, unspecified; I27.20 Pulmonary hypertension, unspecified; I11.0 Hypertensive heart disease with heart failure; J45.909 Unspecified asthma, uncomplicated; F10.20 Alcohol dependence, uncomplicated; E11.9 Type 2 diabetes mellitus without complications; I46.9 Cardiac arrest, cause unspecified; T50.2X6A Underdosing of carbonic-anhydrase inhibitors, benzothiadiazides and other diuretics, initial encounter; T46.5X6A Underdosing of other antihypertensive drugs, initial encounter; X58.XXXA Exposure to other specified factors, initial encounter; W18.39XA Other fall on same level, initial encounter; Y93.89 Activity, other specified; Y92.89 Other specified places as the place of occurrence of the external cause; Y99.8 Other external cause status; Z79.01 Long term (current) use of anticoagulants; Z87.891 Personal history of nicotine dependence; Z86.711 Personal history of pulmonary embolism; Z79.51 Long term (current) use of inhaled steroids; Z85.038 Personal history of other malignant neoplasm of large intestine; Z85.3 Personal history of malignant neoplasm of breast; Z90.11 Acquired absence of right breast and nipple; Z90.49 Acquired absence of other specified parts of digestive tract; Z90.710 Acquired absence of both cervix and uterus; Z91.148 Patient's other noncompliance with medication regimen for other reason; Z99.81 Dependence on supplemental oxygen; Z79.899 Other long term (current) drug therapy; Z88.5 Allergy status to narcotic agent
CPT/HCPCS: 36415; 36600; 73060; 80048; 82375; 82805; 83880; 84484; 85025; 85379; 93005; 94640; 94660; 99285; J1170; J1940; J2405; J2930; J3490; J7626